=== PATIENT | female | born 1960 | race Caucasian/White ===

== ENCOUNTER 2023-05-19 12:51 | Outpatient (CLI) | payer OTHER, SELFPAY ==
--- NOTE | 2023-05-19 13:00 | CRLHL7_ITS ---
For Patients: As a result of the Century Cures Act, medical imaging exams and procedure reports are released immediately into your electronic medical record. You may view this report before your referring provider. If you have questions, please contact your health care provider. BILATERAL BREAST MRI WITHOUT AND WITH GADOLINIUM, 05/19/2023 CLINICAL HISTORY: Evaluate implant integrity, patient also has a RIGHT breast palpable lump, mammogram and ultrasound demonstrating possible fluid around the implant. INDICATION FOR BREAST MRI: Problem-solving an implant integrity. COMPARISON STUDIES: RIGHT breast mammogram and ultrasound 05/06/2023, screening mammogram 11/13/2022. CONTRAST: 15 cc of Dotarem. TECHNIQUE: The patient was positioned prone using a breast coil. Multiple imaging sequences were obtained using 1-1.5 mm thick slices with no gap. The image sequences include T2-weighted STIR in the axial plane, T1-weighted nonfat-saturated gradient echo in the axial plane, pre- and post-contrast T1-weighted FLASH 3D with fat suppression in the axial plane, and T1-weighted FLASH high resolution 3D with fat suppression in the sagittal plane. Image post-processing was performed on a [employer] workstation. Complex 3D rendering including maximum intensity projections (MIPS) and volumetric renderings were obtained to optimize visualization of the extent of pathology and relationship to the nipple, skin, and chest wall. This aids in determining feasibility of breast conservation surgery. Subtraction, multiplanar reconstruction, mean curve determination, and angiogenesis mapping were also performed. The study was technically adequate. FINDINGS: Amount of Fibroglandular Tissue: Heterogeneous fibroglandular tissue. Breast Background Enhancement: Mild. RIGHT Breast: There is a subpectoral silicone implant. Linguine sign is presence, suggestive of intracapsular rupture. There is mild enhancement of the implant capsule. Dedicated silicone sensitive sequences were not obtained. No suspicious areas of enhancement. LEFT Breast: Subpectoral silicone implant appears intact. No suspicious areas of enhancement. Lymph Nodes: No adenopathy. IMPRESSIONS AND RECOMMENDATIONS: 1. No MRI evidence of malignancy in either breast. 2. Intracapsular rupture of the RIGHT breast implant with mild enhancement of the implant capsule, likely reactive. BI-RADS Category 2: Benign Dictated by Mayte Soliman MD @ 05/24/2023 2:34:03 PM jj/Dictated by: Mayte Soliman MD @ 05/24/2023 2:34:00 PM (Electronically Signed)
== END 2023-05-19 12:52 | disposition home or self-care (01) ==
PROVIDERS: PCP Physician Assistant; Visit Provider Physician Assistant
DX: N63.13 Unspecified lump in the right breast, lower outer quadrant (principal)
CPT/HCPCS: 77049; A9575